=== PATIENT | male | born 1955 | race Caucasian/White ===

== ENCOUNTER 2016-10-27 14:23 | Emergency (ER) | payer BC ==
[2016-10-27] MEDS ORDERED: Lidocaine 2% with EPINEPHrine 1:100,000 20 ML MDV INJECT ONE (14:38)
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
[2016-10-27] MEDS ORDERED: Diphtheria,Pertussis(Acell),Tetanus Vaccine 0.5 ML Syringe IM ONE (15:12)
[2016-10-27] MEDS ORDERED: Ketorolac 60 MG/2 ML SDV IM ONE (15:24)
[2016-10-27] MEDS ORDERED: Take Home: Acetaminophen/HYDROcodone 325-5 MG, 5 Tab Pack PO ONE (16:23)
[2016-10-27 16:45] VITALS: BP 155/88
== END 2016-10-27 16:38 | disposition home or self-care (01) ==
LOC: VM.ED 14:23 → MERGE 14:23 → VM.ED 16:38
DX: S22.050A Wedge compression fracture of T5-T6 vertebra, initial encounter for closed fracture (principal); S01.312A Laceration without foreign body of left ear, initial encounter; S09.90XA Unspecified injury of head, initial encounter; V86.99XA Unspecified occupant of other special all-terrain or other off-road motor vehicle injured in nontraffic accident, initial encounter; Z23 Encounter for immunization
CPT/HCPCS: 12011; 70450; 71101; 72125; 72128; 73030; 90471; 90715; 96372; 99284; A9270; J1885